=== PATIENT | female | born 1955 | race Caucasian/White ===

== ENCOUNTER 2020-08-26 12:42 | Inpatient (IN) ==
[2020-08-26] MEDS ORDERED: methylPREDNISolone 125 MG/2 ML VIAL IVP ONE (12:58)
[2020-08-26] MEDS ORDERED: Aspirin 81 MG TAB.CHEW PO STA (13:15)
[2020-08-26 13:30] LABS: Basophils # 0.1 K/mcL (0.0-0.2); Basophils % 0.8 %; Eosinophils # 0.1 K/mcL (0.0-0.6); Eosinophils % 2.1 %; Hematocrit 44.5 % (35.3-44.9); Hemoglobin 14.6 g/dL (11.5-15.4); Immature Granulocytes % 0.5 % (0-4); Lymphocytes # 1.7 K/mcL (0.6-4.6); Mean Corpuscular HGB Conc 32.8 g/dL (31.6-35.5); Mean Corpuscular Hemoglobin 30.8 pg (28.0-33.3); Mean Corpuscular Volume 93.9 fL (83.0-100.0); Mean Platelet Volume 8.9 fL (9.4-12.4); Monocytes # 0.5 K/mcL (0.0-1.3); Monocytes % 7.9 %; Neutrophils # 3.7 K/mcL (1.6-8.9); Platelet Count 299 K/mcL (140-400); Red Blood Count 4.74 M/mcL (3.82-4.97); Red Cell Distribution Width 15.1 % (11.5-14.5); Segmented Neutrophils % 60.7 %; White Blood Count 6.1 K/mcL (4.3-11.1)
[2020-08-26] MEDS ORDERED: cefTRIAXone 1,000 MG in Water for inj. (sterile) 10 ML IVP ONE (13:34)
[2020-08-26] MEDS ORDERED: Albuterol Neb 7.5 MG, Ipratropium Neb 0.5 MG, Sodium Chloride for inhalation 9 ML IH ONE (13:34)
[2020-08-26] MEDS ORDERED: Azithromycin 250 MG TABLET PO ONE (13:35)
[2020-08-26 13:37] LABS: INR 0.9; Prothrombin Time 10.7 Seconds (9.4-12.1)
[2020-08-26 13:40] LABS: Activated Partial Thrombo Time 36.6 Seconds (26.0-36.0)
[2020-08-26 13:51] LABS: Alanine Aminotransferase 9 Units/L (7-52); Albumin 3.9 g/dL (3.5-5.7); Albumin/Globulin Ratio 1.3 (1.1-2.2); Alkaline Phosphatase 62 Units/L (34-104); Aspartate Amino Transferase 17 Units/L (13-39); BUN/Creatinine Ratio 9 (6-26); Bilirubin,Total 0.6 mg/dL (0.3-1.0); Blood Urea Nitrogen 10 mg/dL (8-23); Calcium 9.3 mg/dL (8.6-10.3); Carbon Dioxide 30 mEq/L (23-29); Chloride 95 mEq/L (98-107); Globulin 2.9 g/dL (2.4-3.5); Glucose 93 mg/dL (70-105); Lipase 29 Units/L (11-82); Magnesium 1.9 mg/dL (1.6-2.6); Osmolality,Calculated 281 (280-300); Potassium 3.9 mEq/L (3.5-5.1); Sodium 136 mEq/L (136-145); Total Protein 6.8 g/dL (6.4-8.9); Troponin I < 0.03 ng/mL (< 0.04); eGFR For African Americans 58 (> 60); eGFR For Non-African Americans 48 (> 60)
[2020-08-26] MEDS ORDERED: Naloxone 0.4 MG/ML INJ IVP PRN (15:11)
[2020-08-26] MEDS ORDERED: Albuterol 2.5 MG/3 ML NEBULIZER IH PRN (17:01)
[2020-08-26] MEDS: Budesonide/Formoterol 160/4.5 1 PUFF INH IH SCH (20:05)
[2020-08-26] MEDS: Ipratropium/Albuterol Neb 3 ML IH PRN (20:08)
[2020-08-26] MEDS: *HR* Heparin 5,000 UNIT/ML VIAL SQ SCH (20:36)
[2020-08-27] MEDS: *HR* Heparin 5,000 UNIT/ML VIAL SQ SCH ×3 (05:34→20:58)
[2020-08-27 05:38] LABS: Basophils % 0.2 %; Hematocrit 44.8 % (35.3-44.9); Hemoglobin 14.2 g/dL (11.5-15.4); Immature Granulocytes % 0.7 % (0-4); Mean Corpuscular HGB Conc 31.7 g/dL (31.6-35.5); Mean Corpuscular Hemoglobin 30.1 pg (28.0-33.3); Mean Corpuscular Volume 95.1 fL (83.0-100.0); Mean Platelet Volume 9.3 fL (9.4-12.4); Monocytes # 0.2 K/mcL (0.0-1.3); Monocytes % 2.7 %; Neutrophils # 6.8 K/mcL (1.6-8.9); Platelet Count 305 K/mcL (140-400); Red Blood Count 4.71 M/mcL (3.82-4.97); Red Cell Distribution Width 14.9 % (11.5-14.5); Segmented Neutrophils % 84.4 %
[2020-08-27 05:56] LABS: Calcium 9.3 mg/dL (8.6-10.3); Potassium 4.6 mEq/L (3.5-5.1)
[2020-08-27] MEDS: Budesonide/Formoterol 160/4.5 1 PUFF INH IH SCH ×2 (07:52→20:05)
[2020-08-27] MEDS: Ipratropium/Albuterol Neb 3 ML IH PRN (07:53)
[2020-08-27] MEDS: Triamterene/HCTZ 75/50 mg TABLET PO SCH (08:38)
[2020-08-27] MEDS ORDERED: Azithromycin 500 MG in 0.9 % Sodium Chloride 250 ML IVPB SCH (09:00)
[2020-08-27] MEDS: cefTRIAXone 2,000 MG in Water for inj. (sterile) 20 ML IVP SCH (09:12)
[2020-08-27] MEDS: MethylPREDNISolone 40 MG/ML VIAL IVP SCH ×3 (09:13→23:55)
[2020-08-27 10:59] LABS: Acinetobacter baumannii by PCR Not Detected (Not Detect); Candida albicans by PCR Not Detected (Not Detect); Candida glabrata by PCR Not Detected (Not Detect); Candida krusei by PCR Not Detected (Not Detect); Candida parapsilosis by PCR Not Detected (Not Detect); Candida tropicalis by PCR Not Detected (Not Detect); Enterobacter cloacae Cmplx PCR Not Detected (Not Detect); Enterobacteriaceae by PCR Not Detected (Not Detect); Enterococcus by PCR Not Detected (Not Detect); Escherichia coli by PCR Not Detected (Not Detect); Klebsiella oxytoca by PCR Not Detected (Not Detect); Klebsiella pneumoniae by PCR Not Detected (Not Detect); Proteus by PCR Not Detected (Not Detect); Pseudomonas aeruginosa by PCR Not Detected (Not Detect); Serratia marcescens by PCR Not Detected (Not Detect); Staphylococcus aureus by PCR Not Detected (Not Detect); Staphylococcus by PCR DETECTED (Not Detect); Streptococcus agalactiae(B)PCR Not Detected (Not Detect); Streptococcus by PCR Not Detected (Not Detect); Streptococcus pneumoniae PCR Not Detected (Not Detect); Streptococcus pyogenes (A) PCR Not Detected (Not Detect); mecA Methicillin-Resist Gene Not Detected (Not Detect)
[2020-08-27] MEDS: *HR* OxyCODONE/APAP 5/325 TABLET PO PRN (15:52)
[2020-08-27] MEDS: Doxycycline 100 MG in 0.9 % Sodium Chloride Mini Bag 100 ML IVPB SCH (17:50)
[2020-08-28 04:06] LABS: Basophils % 0.1 %; Hematocrit 46.4 % (35.3-44.9); Hemoglobin 15.1 g/dL (11.5-15.4); Immature Granulocytes % 0.6 % (0-4); Lymphocytes % 9.4 %; Mean Corpuscular HGB Conc 32.5 g/dL (31.6-35.5); Mean Corpuscular Hemoglobin 30.7 pg (28.0-33.3); Mean Corpuscular Volume 94.3 fL (83.0-100.0); Mean Platelet Volume 9.3 fL (9.4-12.4); Monocytes # 0.2 K/mcL (0.0-1.3); Monocytes % 1.5 %; Platelet Count 329 K/mcL (140-400); Red Blood Count 4.92 M/mcL (3.82-4.97); Red Cell Distribution Width 14.8 % (11.5-14.5); Segmented Neutrophils % 88.4 %; White Blood Count 10.2 K/mcL (4.3-11.1)
[2020-08-28 04:33] LABS: Calcium 9.3 mg/dL (8.6-10.3); Potassium 4.8 mEq/L (3.5-5.1)
[2020-08-28] MEDS: Doxycycline 100 MG in 0.9 % Sodium Chloride Mini Bag 100 ML IVPB SCH ×2 (05:12→16:46)
[2020-08-28] MEDS: *HR* Heparin 5,000 UNIT/ML VIAL SQ SCH ×3 (05:12→19:30)
[2020-08-28] MEDS: *HR* OxyCODONE/APAP 5/325 TABLET PO PRN ×2 (06:21→19:30)
[2020-08-28] MEDS ORDERED: 0.9 % Sodium Chloride 1,000 ML IVC SCH (07:45)
[2020-08-28] MEDS: Triamterene/HCTZ 75/50 mg TABLET PO SCH (08:23)
[2020-08-28] MEDS: cefTRIAXone 2,000 MG in Water for inj. (sterile) 20 ML IVP SCH (09:13)
[2020-08-28] MEDS: MethylPREDNISolone 40 MG/ML VIAL IVP SCH ×3 (09:13→23:17)
[2020-08-28] MEDS: Budesonide/Formoterol 160/4.5 1 PUFF INH IH SCH ×2 (09:54→20:28)
[2020-08-28] MEDS: Ipratropium/Albuterol Neb 3 ML IH PRN ×2 (09:55→15:15)
[2020-08-29 04:44] LABS: Basophils % 0.1 %; Hematocrit 45.3 % (35.3-44.9); Hemoglobin 14.6 g/dL (11.5-15.4); Immature Granulocytes % 0.6 % (0-4); Lymphocytes # 0.8 K/mcL (0.6-4.6); Lymphocytes % 8.5 %; Mean Corpuscular HGB Conc 32.2 g/dL (31.6-35.5); Mean Corpuscular Hemoglobin 30.1 pg (28.0-33.3); Mean Corpuscular Volume 93.4 fL (83.0-100.0); Mean Platelet Volume 9.4 fL (9.4-12.4); Monocytes # 0.3 K/mcL (0.0-1.3); Monocytes % 2.9 %; Neutrophils # 8.3 K/mcL (1.6-8.9); Platelet Count 328 K/mcL (140-400); Red Blood Count 4.85 M/mcL (3.82-4.97); Red Cell Distribution Width 14.8 % (11.5-14.5); Segmented Neutrophils % 87.9 %; White Blood Count 9.4 K/mcL (4.3-11.1)
[2020-08-29 04:57] LABS: Calcium 9.5 mg/dL (8.6-10.3); Potassium 4.9 mEq/L (3.5-5.1)
[2020-08-29] MEDS: *HR* Heparin 5,000 UNIT/ML VIAL SQ SCH ×3 (06:10→23:30)
[2020-08-29] MEDS: Doxycycline 100 MG in 0.9 % Sodium Chloride Mini Bag 100 ML IVPB SCH (06:11)
[2020-08-29] MEDS: Budesonide/Formoterol 160/4.5 1 PUFF INH IH SCH ×2 (07:04→20:44)
[2020-08-29] MEDS: Triamterene/HCTZ 75/50 mg TABLET PO SCH (08:18)
[2020-08-29] MEDS: *HR* OxyCODONE/APAP 5/325 TABLET PO PRN ×2 (08:18→19:21)
[2020-08-29] MEDS: cefTRIAXone 2,000 MG in Water for inj. (sterile) 20 ML IVP SCH (10:04)
[2020-08-29] MEDS: MethylPREDNISolone 40 MG/ML VIAL IVP SCH ×3 (10:04→23:30)
[2020-08-29] MEDS: Doxycycline 100 MG CAPSULE PO SCH (19:21)
[2020-08-30] MEDS: *HR* Heparin 5,000 UNIT/ML VIAL SQ SCH ×2 (05:48→17:08)
[2020-08-30] MEDS: Budesonide/Formoterol 160/4.5 1 PUFF INH IH SCH ×2 (07:30→20:00)
[2020-08-30] MEDS: MethylPREDNISolone 40 MG/ML VIAL IVP SCH (08:06)
[2020-08-30] MEDS: Triamterene/HCTZ 75/50 mg TABLET PO SCH (08:07)
[2020-08-30] MEDS: *HR* OxyCODONE/APAP 5/325 TABLET PO PRN ×2 (08:07→19:46)
[2020-08-30] MEDS: Doxycycline 100 MG CAPSULE PO SCH ×2 (08:07→19:46)
[2020-08-30] MEDS: Ipratropium/Albuterol Neb 3 ML IH SCH ×4 (15:24→23:54)
[2020-08-30] MEDS ORDERED: MethylPREDNISolone 40 MG/ML VIAL IVP SCH (20:00)
[2020-08-31] MEDS: *HR* Heparin 5,000 UNIT/ML VIAL SQ SCH ×3 (02:34→18:26)
[2020-08-31] MEDS: Ipratropium/Albuterol Neb 3 ML IH SCH ×4 (04:07→16:31)
[2020-08-31] MEDS: *HR* OxyCODONE/APAP 5/325 TABLET PO PRN ×2 (05:12→14:06)
[2020-08-31] MEDS: Budesonide/Formoterol 160/4.5 1 PUFF INH IH SCH (07:20)
[2020-08-31 08:22] VITALS: BP 161/84
[2020-08-31] MEDS: Doxycycline 100 MG CAPSULE PO SCH (08:36)
[2020-08-31] MEDS: Triamterene/HCTZ 75/50 mg TABLET PO SCH (08:48)
[2020-08-31] MEDS ORDERED: predniSONE 20 MG TABLET PO SCH (09:00)
== END 2020-08-31 19:10 | disposition home or self-care (01) | DRG 193 ==
LOC: 3BNU 12:42 → EMEROOARM 12:42 → 3BNU 15:10 → SUATTDRO 08-27 18:15
PROVIDERS: ADMIT Internal Medicine; ATTEND Internal Medicine

== ENCOUNTER 2021-10-31 12:38 | Inpatient (IN) ==
[2021-10-31] MEDS ORDERED: Iopamidol - 370 500 ML MLS IVP ONE (15:35)
[2021-10-31 16:39] LABS: VBG HCO3 32 mEq/L (21-27); VBG PCO2 64 mmHg (41-51); VBG PH 7.31 pH Units (7.32-7.42); VBG PO2 46 mmHg (25-50)
[2021-10-31 16:42] LABS: Basophils % 0.4 %; Eosinophils % 0.2 %; Hematocrit 46.7 % (35.3-44.9); Hemoglobin 15.3 g/dL (11.5-15.4); Immature Granulocytes % 1.1 % (0-4); Lymphocytes # 1.7 K/mcL (0.6-4.6); Lymphocytes % 17.9 %; Mean Corpuscular HGB Conc 32.8 g/dL (31.6-35.5); Mean Corpuscular Hemoglobin 30.1 pg (28.0-33.3); Mean Corpuscular Volume 91.7 fL (83.0-100.0); Mean Platelet Volume 9.8 fL (9.4-12.4); Neutrophils # 6.4 K/mcL (1.6-8.9); Platelet Count 398 K/mcL (140-400); Red Blood Count 5.09 M/mcL (3.82-4.97); Red Cell Distribution Width 13.9 % (11.5-14.5); Segmented Neutrophils % 69.4 %; White Blood Count 9.3 K/mcL (4.3-11.1)
[2021-10-31 17:10] LABS: Albumin 3.8 g/dL (3.5-5.7); Albumin/Globulin Ratio 1.2 (1.1-2.2); Bilirubin,Direct 0.1 mg/dL (0.0-0.2); Bilirubin,Indirect 0.4 mg/dL (0.0-1.0); Bilirubin,Total 0.5 mg/dL (0.3-1.0); Calcium 8.8 mg/dL (8.6-10.3); Globulin 3.2 g/dL (2.4-3.5); Magnesium 2.8 mg/dL (1.6-2.6); Potassium 3.6 mEq/L (3.5-5.1); Troponin I 0.06 ng/mL (< 0.04)
[2021-10-31] MEDS ORDERED: predniSONE 20 MG TABLET PO ONE (17:12)
[2021-10-31] MEDS: Ipratropium/Albuterol Neb 3 ML IH SCH (17:31)
[2021-10-31] MEDS ORDERED: 0.9 % Sodium Chloride 1,000 ML IVC ONE (18:33)
[2021-10-31 19:03] LABS: VBG HCO3 31 mEq/L (21-27); VBG PCO2 61 mmHg (41-51); VBG PH 7.31 pH Units (7.32-7.42); VBG PO2 47 mmHg (25-50)
[2021-10-31] MEDS ORDERED: Aspirin 325 MG TABLET PO ONE (20:36)
[2021-10-31 21:13] LABS: Influenza A PCR Negative (Negative); Influenza B PCR Negative (Negative); Resp. Syncytial Virus PCR Negative (Negative)
[2021-10-31 21:17] LABS: SARS-CoV-2 by PCR (In House) Positive (Negative)
[2021-10-31] MEDS ORDERED: Acetaminophen 325 MG TABLET PO PRN (21:30)
[2021-10-31] MEDS ORDERED: Ondansetron 4 MG/2 ML VIAL IVP PRN (21:30)
[2021-10-31] MEDS ORDERED: Naloxone 0.4 MG/ML INJ IVP PRN (21:30)
[2021-10-31] MEDS ORDERED: Melatonin 3 MG TABLET PO PRN (21:30)
[2021-10-31] MEDS ORDERED: Saliva Stimulant 44.3ml BOTTLE PO PRN (21:34)
[2021-10-31] MEDS ORDERED: Saline Nasal Spray 44 ML BOTTLE NS PRN (21:34)
[2021-11-01 02:04] LABS: Basophils % 0.4 %; Hematocrit 45.4 % (35.3-44.9); Hemoglobin 14.8 g/dL (11.5-15.4); Immature Granulocytes % 1.6 % (0-4); Lymphocytes # 0.9 K/mcL (0.6-4.6); Lymphocytes % 12.7 %; Mean Corpuscular HGB Conc 32.6 g/dL (31.6-35.5); Mean Corpuscular Hemoglobin 29.9 pg (28.0-33.3); Mean Corpuscular Volume 91.7 fL (83.0-100.0); Mean Platelet Volume 9.7 fL (9.4-12.4); Monocytes # 0.1 K/mcL (0.0-1.3); Neutrophils # 5.9 K/mcL (1.6-8.9); Platelet Count 350 K/mcL (140-400); Red Blood Count 4.95 M/mcL (3.82-4.97); Red Cell Distribution Width 13.9 % (11.5-14.5); Segmented Neutrophils % 83.3 %; White Blood Count 7.1 K/mcL (4.3-11.1)
[2021-11-01 02:12] LABS: Prothrombin Time 10.8 Seconds (9.4-12.1)
[2021-11-01 02:15] LABS: Activated Partial Thrombo Time 32.6 Seconds (26.0-36.0)
[2021-11-01 02:21] LABS: Albumin 3.6 g/dL (3.5-5.7); Albumin/Globulin Ratio 1.2 (1.1-2.2); Bilirubin,Total 0.5 mg/dL (0.3-1.0); C-Reactive Protein 16 mg/L (Less than 10); Calcium 8.4 mg/dL (8.6-10.3); Globulin 2.9 g/dL (2.4-3.5); Lactate Dehydrogenase 156 Units/L (140-271); Magnesium 2.6 mg/dL (1.6-2.6); Phosphorous 2.9 mg/dL (2.7-4.5); Potassium 3.9 mEq/L (3.5-5.1); Total Protein 6.5 g/dL (6.4-8.9)
[2021-11-01 02:34] LABS: Thyroid Stimulating Hormone 13.138 mcIU/mL (0.340-5.600)
[2021-11-01 02:39] LABS: Ferritin 301 ng/mL (10-120)
[2021-11-01 02:41] LABS: Estimated Average Glucose 128 mg/dl; Hemoglobin A1C 6.1 %
[2021-11-01] MEDS: Ipratropium 1 PUFF INHALER IH SCH ×5 (03:02→22:47)
[2021-11-01] MEDS: *HR* Heparin 5,000 UNIT/ML VIAL SQ SCH ×3 (06:31→20:41)
[2021-11-01] MEDS: Budesonide/Formoterol 160/4.5 1 PUFF INH IH SCH ×2 (10:36→22:46)
[2021-11-01] MEDS: Chlorhexidine Rinse 15 ML MOUTHWASH MM SCH ×2 (10:45→20:40)
[2021-11-01] MEDS: Multivit/Ca/Min/Fe/FA 1 TAB TABLET PO SCH (10:45)
[2021-11-01] MEDS: Artificial Tears SOLN 15 ML BOTTLE BOTH EYES SCH ×2 (10:45→20:40)
[2021-11-01] MEDS: Nicotine 21 MG PATCH.TD24 TD SCH (10:45)
[2021-11-01] MEDS: Aspirin Enteric Coated 81 MG Tablet PO SCH (10:45)
[2021-11-01] MEDS: Lactobacillus 1 EACH CAP.SPRINK PO SCH ×2 (10:45→20:40)
[2021-11-01 13:58] LABS: Adenovirus F 40/41 PCR Not detected (Not detect); Astrovirus PCR Not detected (Not detect); C.difficile Toxin A/B Gene PCR DETECTED (Not detect); Campylobacter by PCR DETECTED (Not detect); Cryptosporidium by PCR Not detected (Not detect); Cyclospora cayetanensis PCR Not detected (Not detect); Entamoeba histolytica PCR Not detected (Not detect); Enteroaggregative E.coli(EAEC) Not detected (Not detect); Enteropathogenic E.coli(EPEC) Not detected (Not detect); Enterotoxigenic E.coli (ETEC) Not detected (Not detect); Giardia lamblia PCR Not detected (Not detect); Norovirus GI/GII PCR Not detected (Not detect); Plesiomonas shigelloides PCR Not detected (Not detect); Rotavirus A PCR Not detected (Not detect); Salmonella PCR Not detected (Not detect); Sapovirus PCR Not detected (Not detect); Shig/EnteroinvasiveE coli EIEC Not detected (Not detect); Shigalike tox-prod E coli STEC Not detected (Not detect); Vibrio PCR Not detected (Not detect); Vibrio cholerae PCR Not detected (Not detect); Yersinia enterocolitica PCR Not detected (Not detect)
[2021-11-01] MEDS: Vancomycin Oral Soln 125 MG/2.5 ML UDC PO SCH ×3 (15:18→20:40)
[2021-11-02] MEDS: Ipratropium 1 PUFF INHALER IH SCH ×4 (04:13→21:59)
[2021-11-02 05:42] LABS: Basophils % 0.2 %; Eosinophils % 0.1 %; Hematocrit 39.8 % (35.3-44.9); Immature Granulocytes % 2.1 % (0-4); Lymphocytes # 1.6 K/mcL (0.6-4.6); Lymphocytes % 17.3 %; Mean Corpuscular HGB Conc 32.4 g/dL (31.6-35.5); Mean Corpuscular Hemoglobin 29.8 pg (28.0-33.3); Mean Corpuscular Volume 91.9 fL (83.0-100.0); Mean Platelet Volume 9.7 fL (9.4-12.4); Monocytes % 10.6 %; Neutrophils # 6.3 K/mcL (1.6-8.9); Platelet Count 373 K/mcL (140-400); Red Blood Count 4.33 M/mcL (3.82-4.97); Red Cell Distribution Width 13.8 % (11.5-14.5); Segmented Neutrophils % 69.7 %; White Blood Count 9.1 K/mcL (4.3-11.1)
[2021-11-02 05:43] LABS: Hemoglobin 12.9 g/dL (11.5-15.4)
[2021-11-02 06:01] LABS: Calcium 8.5 mg/dL (8.6-10.3); Potassium 3.6 mEq/L (3.5-5.1)
[2021-11-02] MEDS: *HR* Heparin 5,000 UNIT/ML VIAL SQ SCH ×3 (06:12→20:42)
[2021-11-02] MEDS ORDERED: Triamterene/HCTZ 75/50 mg TABLET PO SCH (09:00)
[2021-11-02] MEDS ORDERED: NON-FORMULARY MEDICATION 1 EACH EACH (Losartan Potassium [Cozaar] 50 MG Tablet) PO SCH (09:00)
[2021-11-02] MEDS: Lactobacillus 1 EACH CAP.SPRINK PO SCH ×2 (09:52→20:41)
[2021-11-02] MEDS: Aspirin Enteric Coated 81 MG Tablet PO SCH (09:52)
[2021-11-02] MEDS: Multivit/Ca/Min/Fe/FA 1 TAB TABLET PO SCH (09:53)
[2021-11-02] MEDS: Nicotine 21 MG PATCH.TD24 TD SCH (09:53)
[2021-11-02] MEDS: Chlorhexidine Rinse 15 ML MOUTHWASH MM SCH ×2 (09:53→20:41)
[2021-11-02] MEDS: Vancomycin Oral Soln 125 MG/2.5 ML UDC PO SCH ×4 (09:53→20:42)
[2021-11-02] MEDS: Artificial Tears SOLN 15 ML BOTTLE BOTH EYES SCH ×2 (09:54→20:41)
[2021-11-02] MEDS: Budesonide/Formoterol 160/4.5 1 PUFF INH IH SCH ×2 (10:45→21:59)
[2021-11-02] MEDS: *HR* OxyCODONE/APAP 5/325 TABLET PO PRN (11:06)
[2021-11-03] MEDS: Ipratropium 1 PUFF INHALER IH SCH ×4 (03:52→22:36)
[2021-11-03] MEDS: *HR* Heparin 5,000 UNIT/ML VIAL SQ SCH ×3 (06:07→20:55)
[2021-11-03] MEDS: Chlorhexidine Rinse 15 ML MOUTHWASH MM SCH ×2 (09:40→20:48)
[2021-11-03] MEDS: Artificial Tears SOLN 15 ML BOTTLE BOTH EYES SCH ×2 (09:40→20:51)
[2021-11-03] MEDS: Multivit/Ca/Min/Fe/FA 1 TAB TABLET PO SCH (09:41)
[2021-11-03] MEDS: Aspirin Enteric Coated 81 MG Tablet PO SCH (09:41)
[2021-11-03] MEDS: Lactobacillus 1 EACH CAP.SPRINK PO SCH ×2 (09:41→20:50)
[2021-11-03] MEDS: Nicotine 21 MG PATCH.TD24 TD SCH (09:42)
[2021-11-03] MEDS: Vancomycin Oral Soln 125 MG/2.5 ML UDC PO SCH ×4 (09:42→20:49)
[2021-11-03] MEDS: *HR* OxyCODONE/APAP 5/325 TABLET PO PRN ×2 (09:55→20:50)
[2021-11-03] MEDS: Budesonide/Formoterol 160/4.5 1 PUFF INH IH SCH ×2 (09:58→22:36)
[2021-11-04] MEDS: Ipratropium 1 PUFF INHALER IH SCH ×4 (03:57→21:46)
[2021-11-04] MEDS: *HR* Heparin 5,000 UNIT/ML VIAL SQ SCH ×3 (06:06→20:39)
[2021-11-04] MEDS: Multivit/Ca/Min/Fe/FA 1 TAB TABLET PO SCH (09:36)
[2021-11-04] MEDS: Vancomycin Oral Soln 125 MG/2.5 ML UDC PO SCH ×4 (09:37→20:37)
[2021-11-04] MEDS: Aspirin Enteric Coated 81 MG Tablet PO SCH (09:37)
[2021-11-04] MEDS: Lactobacillus 1 EACH CAP.SPRINK PO SCH ×2 (09:37→20:38)
[2021-11-04] MEDS: Artificial Tears SOLN 15 ML BOTTLE BOTH EYES SCH ×2 (09:38→20:39)
[2021-11-04] MEDS: Nicotine 21 MG PATCH.TD24 TD SCH (09:42)
[2021-11-04] MEDS: Chlorhexidine Rinse 15 ML MOUTHWASH MM SCH ×2 (09:42→20:39)
[2021-11-04] MEDS: *HR* OxyCODONE/APAP 5/325 TABLET PO PRN ×2 (09:46→20:42)
[2021-11-04] MEDS: Budesonide/Formoterol 160/4.5 1 PUFF INH IH SCH ×2 (10:50→21:46)
[2021-11-05] MEDS: Ipratropium 1 PUFF INHALER IH SCH ×4 (04:11→22:41)
[2021-11-05] MEDS: *HR* Heparin 5,000 UNIT/ML VIAL SQ SCH ×3 (05:22→20:59)
[2021-11-05] MEDS: Artificial Tears SOLN 15 ML BOTTLE BOTH EYES SCH ×2 (09:21→20:59)
[2021-11-05] MEDS: Chlorhexidine Rinse 15 ML MOUTHWASH MM SCH (09:22)
[2021-11-05] MEDS: Vancomycin Oral Soln 125 MG/2.5 ML UDC PO SCH ×4 (09:22→20:58)
[2021-11-05] MEDS: Nicotine 21 MG PATCH.TD24 TD SCH (09:23)
[2021-11-05] MEDS: Multivit/Ca/Min/Fe/FA 1 TAB TABLET PO SCH (09:24)
[2021-11-05] MEDS: *HR* OxyCODONE/APAP 5/325 TABLET PO PRN ×2 (09:25→20:56)
[2021-11-05] MEDS: Aspirin Enteric Coated 81 MG Tablet PO SCH (09:25)
[2021-11-05] MEDS: Lactobacillus 1 EACH CAP.SPRINK PO SCH ×2 (09:25→20:56)
[2021-11-05] MEDS: Budesonide/Formoterol 160/4.5 1 PUFF INH IH SCH ×2 (10:02→22:42)
[2021-11-06] MEDS: Ipratropium 1 PUFF INHALER IH SCH ×3 (04:35→15:50)
[2021-11-06] MEDS: *HR* Heparin 5,000 UNIT/ML VIAL SQ SCH ×2 (06:27→13:44)
[2021-11-06] MEDS: *HR* OxyCODONE/APAP 5/325 TABLET PO PRN (06:38)
[2021-11-06 07:38] VITALS: BP 123/64; PULSE 70; TEMP 98.1
[2021-11-06] MEDS: Vancomycin Oral Soln 125 MG/2.5 ML UDC PO SCH ×2 (09:05→13:32)
[2021-11-06] MEDS: Multivit/Ca/Min/Fe/FA 1 TAB TABLET PO SCH (09:06)
[2021-11-06] MEDS: Lactobacillus 1 EACH CAP.SPRINK PO SCH (09:06)
[2021-11-06] MEDS: Aspirin Enteric Coated 81 MG Tablet PO SCH (09:06)
[2021-11-06] MEDS: Artificial Tears SOLN 15 ML BOTTLE BOTH EYES SCH (09:08)
[2021-11-06] MEDS: Budesonide/Formoterol 160/4.5 1 PUFF INH IH SCH (11:16)
[2021-11-06 12:35] VITALS: O2SAT 94
== END 2021-11-06 16:51 | disposition home health service (06) | DRG 177 ==
LOC: SUATTDRO → EMEROOARM 12:38 → 3BNU 12:38 → SUATTDRO 22:02 → 3BNU 23:10 → SUATTDRO 11-01 18:02
PROVIDERS: ADMIT Internal Medicine; ATTEND Registered Nurse